=== PATIENT | female | born 1990 | race Caucasian/White ===

== ENCOUNTER 2025-02-16 09:25 | Outpatient (CLI) | payer OTHER, SELFPAY | END 2025-02-16 09:26 | disposition home or self-care (01) | PROVIDERS: PCP Family Medicine; Visit Provider Emergency Medicine | DX: E55.9 Vitamin D deficiency, unspecified (principal); L65.9 Nonscarring hair loss, unspecified; L60.9 Nail disorder, unspecified | CPT/HCPCS: 82306; 82533; 82728; 82947; 84443 ==

== ENCOUNTER 2025-03-01 08:59 | Outpatient (CLI) | payer OTHER, SELFPAY | END 2025-03-01 09:00 | disposition home or self-care (01) | PROVIDERS: PCP Family Medicine; Visit Provider Obstetrics & Gynecology | DX: L65.9 Nonscarring hair loss, unspecified (principal); R23.3 Spontaneous ecchymoses; L70.9 Acne, unspecified | CPT/HCPCS: 80053; 84439; 85610; 85730 ==

== ENCOUNTER 2025-03-10 13:01 | Outpatient (CLI) | payer OTHER, SELFPAY ==
--- NOTE | 2025-03-10 13:00 | CRLHL7_ITS ---
For Patients: As a result of the Century Cures Act, medical imaging exams and procedure reports are released immediately into your electronic medical record. You may view this report before your referring provider. If you have questions, please contact your health care provider. INDICATION: ABNORMAL UTERINE AND VAGINAL BLEEDING COMPARISON: none TECHNIQUE: 2D deasi scale and color Doppler images were acquired of the pelvis using a transabdominal and transvaginal approach. FINDINGS: Sonographic images demonstrate a normal size and smooth outer contour of the uterus. Uterus measures 7.9 cm in length by 3.4 cm in AP diameter by 4.6 cm in transverse dimension. The myometrium has a normal uniform echotexture. The endometrial lining appears normal and measures 7 mm in composite thickness. The right ovary measures 4.7 x 2.5 x 2.6 cm in size and the left ovary measures 3.2 x 1.7 x 2.5 cm. The ovaries demonstrate normal arterial and venous blood flow on color Doppler analysis. There are no suspicious fluid collections within the cul-de-sac. Collapsing hemorrhagic right ovarian cyst measures 2.3 x 1.9 x 2.2 cm. IMPRESSION: Endometrial thickness 7 millimeters. No endometrial fluid or uterine fibroid. Dictated by Josse Cannon MD @ 03/10/2025 2:36:06 PM (Electronically Signed)
== END 2025-03-10 13:02 | disposition home or self-care (01) ==
LOC: US 13:01
PROVIDERS: PCP Family Medicine; Visit Provider Obstetrics & Gynecology
DX: N93.9 Abnormal uterine and vaginal bleeding, unspecified (principal); R93.89 Abnormal findings on diagnostic imaging of other specified body structures
CPT/HCPCS: 76830; 76856

== ENCOUNTER 2025-05-10 12:51 | Outpatient (CLI) | payer OTHER, SELFPAY | END 2025-05-10 12:52 | disposition home or self-care (01) | LOC: NFLDREF 12:52 | PROVIDERS: PCP Family Medicine; Visit Provider Advanced Practice Midwife | DX: N89.8 Other specified noninflammatory disorders of vagina (principal); R30.0 Dysuria; L73.9 Follicular disorder, unspecified; Z86.14 Personal history of Methicillin resistant Staphylococcus aureus infection | CPT/HCPCS: 86694; 86695; 86696; 87529 ==